=== PATIENT | female | born 1955 | race Caucasian/White ===

== ENCOUNTER 2018-10-15 17:48 | Emergency (ER) | payer OTHER ==
[2018-10-15] MEDS ORDERED: Morphine 4 MG/ML VIAL ONE (18:16)
[2018-10-15] MEDS ORDERED: Dexamethasone 20 MG/5 ML VIAL ONE (18:16)
[2018-10-15] MEDS ORDERED: Ondansetron PF 4 MG/2 ML Vial ONE (18:20)
[2018-10-15] MEDS ORDERED: Ketorolac Tromethamine 30 MG/ML VIAL ONE (19:07)
== END 2018-10-15 19:25 | disposition home or self-care (01) ==
LOC: NAV ERS 17:48
DX: M54.42 Lumbago with sciatica, left side (principal); E03.9 Hypothyroidism, unspecified; E78.5 Hyperlipidemia, unspecified; Z79.899 Other long term (current) drug therapy
CPT/HCPCS: 96374; 96375; J1100; J1885; J2270; J2405

== ENCOUNTER 2021-12-21 19:18 | Emergency (ER) | payer OTHER, MEDICARE ==
[2021-12-21] MEDS ORDERED: Acetaminophen 500 MG TAB ONE (19:38)
[2021-12-21] MEDS ORDERED: Naproxen 500 MG TAB ONE (20:12)
== END 2021-12-21 20:16 | disposition home or self-care (01) ==
LOC: NAV ERS 19:18
DX: S06.0X0A Concussion without loss of consciousness, initial encounter (principal); S00.83XA Contusion of other part of head, initial encounter; E03.9 Hypothyroidism, unspecified; E78.5 Hyperlipidemia, unspecified; M79.7 Fibromyalgia; W01.198A Fall on same level from slipping, tripping and stumbling with subsequent striking against other object, initial encounter; Z79.899 Other long term (current) drug therapy
CPT/HCPCS: 70450

== ENCOUNTER 2022-04-21 18:42 | Emergency (ER) | payer MEDICARE ==
[~2022-04-21 18:42] MED LIST: Iopamidol 370 76% 100 ML VIAL ONE
[2022-04-21] MEDS ORDERED: Lidocaine 2% Jelly 5 ML TUBE ONE (19:05)
[2022-04-21 19:15] LABS: Bilirubin Negative (Negative); Blood, Urine Negative (Negative); Glucose, Urine (Dipstick) Negative (Negative); Ketone, Urine Negative (Negative); Leukocyte Negative (Negative); Nitrite Positive (Negative); Protein, Urine (Dipstick) Negative (Neg-Trace); Urobilinogen 0.2 mg/dL (Less than 2)
[2022-04-21 19:17] LABS: Clarity SL HAZY (Clear)
[2022-04-21 19:25] LABS: Bacteria/HPF None Seen HPF (None Seen); RBC/HPF 0-3 HPF (0-3); Squamous Epithelial 0-3 HPF (0-3)
[2022-04-21 19:44] LABS: #Basophils 0.1 thou/uL (0.0-0.2); #Eosinphils 0.4 thou/uL (0.0-0.7); #Lymphocytes 2.4 thou/uL (1.20-3.40); #Monocytes 0.5 thou/uL (0.11-0.59); #Neutrophils 3.7 thou/uL (1.40-6.50); %Basophils 1.3 % (0.0-1.0); %Eosinophils 5.8 % (0.0-10.0); %Lymphocytes 34.1 % (21.0-51.0); %Monocytes 6.7 % (0.0-10.0); %Neutrophils 52.1 % (42.0-75.0); Hemoglobin 12.1 g/dL (12.0-16.0); Mean Corpuscular HGB CONC 30.3 g/dL (32.0-36.0); Mean Corpuscular Hemoglobin 29.2 pg (27.0-31.0); Mean Corpuscular Volume 96.3 fL (78.0-98.0); Mean Platelet Volume 12.4 fL (7.4-10.4); Platelet Count 138 thou/uL (130-400); RBC Distribution Width 12.6 % (11.5-14.5); Red Blood Cell (RBC) Count 4.16 mill/uL (4.20-5.40); White Blood Cell (WBC) Count 7.2 thou/uL (4.8-10.8)
[2022-04-21] MEDS ORDERED: Morphine 4 MG/ML VIAL ONE (19:46)
[2022-04-21] MEDS ORDERED: Ondansetron PF 4 MG/2 ML Vial ONE (19:46)
[2022-04-21 19:56] LABS: ALT (SGPT) 18 U/L (8-55); AST (SGOT) 23 U/L (5-34); Albumin 3.8 g/dL (3.4-4.8); Alkaline Phosphatase 54 U/L (40-110); Anion Gap 14 mmol/L (10-20); BUN (Urea Nitrogen) 11 mg/dL (9.8-20.1); Bilirubin, Total 0.2 mg/dL (0.2-1.2); Calc. Creatinine Clearance 0 mL/min (70-130); Calcium 8.7 mg/dL (7.8-10.44); Carbon Dioxide 25 mmol/L (23-31); Chloride 104 mmol/L (98-107); Estimated GFR 86; Globulin 2.3 g/dL (2.4-3.5); Glucose 116 mg/dL (80-115); Lipase 16 U/L (8-78); Potassium 3.6 mmol/L (3.5-5.1); Protein, Total 6.1 g/dL (5.8-8.1); Sodium 139 mmol/L (136-145)
== END 2022-04-21 22:31 | disposition home or self-care (01) ==
LOC: NAV ERS 18:42
DX: K59.00 Constipation, unspecified (principal); R33.9 Retention of urine, unspecified; E03.9 Hypothyroidism, unspecified; E78.5 Hyperlipidemia, unspecified; Z79.899 Other long term (current) drug therapy
CPT/HCPCS: 51702; 74177; 80053; 81003; 81015; 83690; 85025; 96374; 96375; J2270; J2405; Q9967